=== PATIENT | male | born 1990 | race Caucasian/White ===

== ENCOUNTER 2023-12-23 08:17 | Emergency (ER) | payer SELFPAY ==
[~2023-12-23] VITALS: Ht 170.2 cm; Wt 97.0 kg
[2023-12-23 08:24] VITALS: O2SAT 96
[2023-12-23 09:49] LABS: HEMATOCRIT 44.3 % (42.0-52.0); HEMOGLOBIN 14.8 g/dL (14.0-18.0); MEAN CORPUSCULAR HEMOGLOBIN 30.6 pg (28.0-32.0); MEAN CORPUSCULAR HGB CONC 33.3 g/dL (31.0-37.0); MEAN CORPUSCULAR VOLUME 91.8 fL (80.0-94.0); PLATELET 285 x1000/uL (130-400); RED BLOOD CELL COUNT 4.83 mill/uL (4.7-6.1); RED CELL DISTRIBUTION WIDTH 13.3 % (11.6-14.6)
[2023-12-23 09:59] LABS: CHLORIDE 106 mEq/L (98-107); POTASSIUM 3.9 mEq/L (3.5-5.1); SODIUM 138 mEq/L (136-145)
[2023-12-23 10:00] LABS: CALCIUM 9.5 mg/dL (8.7-10.4); CARBON DIOXIDE 29 mEq/L (21-32)
[2023-12-23 10:05] LABS: CREATININE 0.9 mg/dL (0.6-1.3); GLUCOSE 92 mg/dL (70-105); UREA NITROGEN BLOOD 11 mg/dL (9-23)
[2023-12-23] MEDS ORDERED: TOPUD PO (10:41)
[2023-12-23 10:53] VITALS: BP 138/76; PULSE 86; RESP 12; TEMP 36.94740; O2SAT 96
== END 2023-12-23 10:55 | disposition home or self-care (01) ==
LOC: ER 09:13
DX: U07.1 COVID-19 (principal)
CPT/HCPCS: 36415; 71045; 80048; 85027; 87426; 99284